=== PATIENT | male | born 2000 | race Caucasian/White ===

== ENCOUNTER 2023-08-06 21:20 | Emergency (ER) | payer OTHER ==
[~2023-08-06] VITALS: Ht 170.2 cm; Wt 83.1 kg
[2023-08-06 21:36] VITALS: BP 133/87; PULSE 61; RESP 15; TEMP 98.1
[2023-08-06] MEDS ORDERED: OFLO5DRO4 RIGHT EAR (23:49)
== END 2023-08-07 00:46 | disposition home or self-care (01) ==
LOC: ER 21:20
DX: H61.21 Impacted cerumen, right ear (principal)
CPT/HCPCS: 69210; 99284